=== PATIENT | female | born 1980 | race Caucasian/White ===

== ENCOUNTER 2018-02-20 19:06 | Emergency (ER) | payer MEDICAID ==
[2018-02-20] MEDS ORDERED: HALOPERIDOL LACT 5 MG/ML INJ IM ONE (19:14)
[2018-02-20] MEDS ORDERED: LORazepam 2 MG/ML INJ IM ONE (19:14)
--- NOTE | 2018-02-20 19:20 | EDPHY ---
H & P Source: Patient Exam Limitations: No limitations - Personal History Tetanus Vaccine Date: 2013 - Medical/Surgical History Hx Asthma: No Hx Chronic Respiratory Disease: No Hx Diabetes: No Hx Cardiac Disease: No Hx Renal Disease: No Hx Cirrhosis: No Hx Alcoholism: No Hx HIV/AIDS: No Hx Splenectomy or Spleen Trauma: No Other PMH: Degenerative disk disease, scoliosis, tubal ligation, herniated disk , chronic back pain - Family History Significant Family History: No pertinent family hx - Social History Smoking Status: Current every day smoker Alcohol Use: Sober Drug Use: None Time Seen by Provider: 02/20/18 19:23 HPI/ROS: CHIEF COMPLAINT: Anxiety HISTORY OF PRESENT ILLNESS: Patient is a 37-year-old female who is brought by police and paramedics on an M1 hold. She is being evicted from her apartment and her mom came to help her move back to [place]. She became angry at her mom and told her that she does not want to go and that she has not been evicted yet. She states that her mom has been conspiring with her landlord. She states that police were called. Police state that she began yelling at them and was not making assistance. She endorses a history of anxiety but nothing else. She is prescribed Lexapro but has not been taking it faithfully. She denies drug or alcohol ingestion. She denies suicidality or homicidality. REVIEW OF SYSTEMS: Constitutional: denies: chills, fever, recent illness, recent injury EENTM: denies: blurred vision, double vision, nose congestion Respiratory: denies: cough, shortness of breath Cardiac: denies: chest pain, irregular heart rate, lightheadedness, palpitations Gastrointestinal/Abdominal: denies: abdominal pain, diarrhea, nausea, vomiting, blood streaked stools Genitourinary: denies: dysuria, frequency, hematuria, pain Musculoskeletal: denies: joint pain, muscle pain Skin: denies: lesions, rash, jaundice, bruising Neurological: denies: headache, numbness, paresthesia, tingling, dizziness, weakness Hematologic/Lymphatic: denies: blood clots, easy bleeding, easy bruising Immunologic/allergic: denies: HIV/AIDS, transplant EXAM: GENERAL: Well-appearing, thin and in no acute distress. HEAD: Atraumatic, normocephalic. EYES: Pupils equal round and reactive to light, extraocular movements intact, sclera anicteric, conjunctiva are normal. ENT: TMs normal, nares patent, oropharynx clear without exudates. Moist mucous membranes. NECK: Normal range of motion, supple without lymphadenopathy or JVD. LUNGS: Breath sounds clear to auscultation bilaterally and equal. No wheezes rales or rhonchi. HEART: Regular rate and rhythm without murmurs, rubs or gallops. ABDOMEN: Soft, nontender, normoactive bowel sounds. No guarding, no rebound. No masses appreciated. BACK: No CVA tenderness, no spinal tenderness, step-offs or deformities EXTREMITIES: Normal range of motion, no pitting or edema. No clubbing or cyanosis. NEUROLOGICAL: Cranial nerves II through XII grossly intact. Normal speech, normal gait. 5/5 strength, normal movement in all extremities, normal sensation PSYCH: Angry, yelling SKIN: Warm, dry, normal turgor, no visible rashes or lesions. (Kevin Francis) Constitutional: Initial Vital Signs Temperature (C) 36.1 C 02/20/18 19:23 Heart Rate 120 H 02/20/18 19:23 Respiratory Rate 20 02/20/18 19:23 Blood Pressure 131/112 H 02/20/18 19:23 O2 Sat (%) 95 02/20/18 19:23 O2 Delivery Mode Room Air Allergies/Adverse Reactions: No Known Allergies Allergy (Verified 02/20/18 19:22) Home Medications: Medication Instructions Recorded Lexapro 02/20/18 Adderall 02/21/18 Medical Decision Making ED Course/Re-evaluation: This patient was turned over to me at change of shift. This patient was accepted [address] [place] [address]. Because of this patient's last outbursts which was nonviolent and simply a verbal outbursts that she did not want to go to [address] [place] [address] doctor Andrzej at [address] [place] [address] has declined her acceptance. We will now look for another placement. They want wait until tomorrow to reassess her. I had a long discussion with the patient. She is not suicidal she is not homicidal she is not gravely disabled. She has a job. She has a place to stay. She has relatives in the area. She is making perfect sense to me and she is not acting out at all. Since the psychiatric team cannot seem to perform a timely evaluation and admit the patient I am dropping the 72 hr hold and discharging her for outpatient follow-up. She does not meet criteria for a hold (Mikey Deal) 7:30 a.m.- The patient was able to provide a urine sample though when she got out of bed she became agitated once more yelling profanities. She was given a dose of Zyprexa and this allowed her to home. The case will be signed out to the oncoming provider Dr. Deal pending her psychiatric evaluation. Her urine toxicology was positive for amphetamines as this may delay her evaluation. ( Tess Charles) 10:00 p.m. The patient is calm now and cooperating. She has not yet provided a urine sample. She is otherwise medically cleared and awaiting psychiatric evaluation. Care transferred to Dr. Covarrubias at shift change. (Kevin Francis) Differential Diagnosis: Partial list of the Differential diagnosis considered include but were not limited to; anxiety, anger reaction and although unlikely based on the history and physical exam, I also considered psychosis, suicidality infection, trauma overdose. (Kevin Francis) - Data Points Laboratory Results: Laboratory Results 02/20/18 19:30 02/20/18 19:30 Medications Given: Discontinued Medications Lorazepam (Ativan) 1 mg PO EDNOW ONE Stop: 02/20/18 20:15 Last Admin: 02/20/18 20:19 Dose: 1 mg Lorazepam (Ativan) 1 mg PO EDNOW ONE Stop: 02/21/18 13:57 Last Admin: 02/21/18 13:57 Dose: 1 mg Olanzapine (Zyprexa Zydis) 10 mg PO EDNOW ONE Stop: 02/20/18 20:15 Last Admin: 02/20/18 20:19 Dose: 10 mg Olanzapine (Zyprexa Im Injection) 10 mg IM EDNOW ONE Stop: 02/21/18 05:52 Last Admin: 02/21/18 05:57 Dose: 10 mg Olanzapine (Zyprexa Zydis) 10 mg PO EDNOW ONE Stop: 02/21/18 13:58 Last Admin: 02/21/18 13:58 Dose: 10 mg Departure - Departure Disposition: Home, Routine, Self-Care Clinical Impression: Anxiety Condition: Good Instructions: Anxiety (ED) Referrals: NONE *PRIMARY CARE P,. [Primary Care Provider] - As per Instructions
[2018-02-20 19:45] LABS: PLATELET COUNT 280 10^3/uL (150-400)
[2018-02-20] MEDS ORDERED: OLANZapine DISINTEGR 10 MG TAB ONE (19:45)
[2018-02-20] MEDS ORDERED: LORazepam 1 MG TAB ONE (19:46)
[2018-02-20] MEDS ORDERED: OLANZapine DISINTEGR 10 MG TAB PO ONE (20:14)
[2018-02-20] MEDS ORDERED: LORazepam 1 MG TAB PO ONE (20:14)
[2018-02-21] MEDS ORDERED: OLANZapine 10 MG/2 ML VIAL ONE ×2 (05:48→12:16)
[2018-02-21] MEDS ORDERED: OLANZapine 10 MG/2 ML VIAL IM ONE (05:51)
[2018-02-21 08:21] VITALS: BP 133/60
[2018-02-21] MEDS ORDERED: OLANZapine DISINTEGR 10 MG TAB ONE (13:45)
[2018-02-21] MEDS ORDERED: LORazepam 1 MG TAB ONE (13:45)
[2018-02-21] MEDS ORDERED: LORazepam 1 MG TAB PO ONE (13:56)
[2018-02-21] MEDS ORDERED: OLANZapine DISINTEGR 10 MG TAB PO ONE (13:57)
== END 2018-02-21 14:23 | disposition home or self-care (01) ==
LOC: EDUNIT#
DX: F41.9 Anxiety disorder, unspecified (principal); F17.200 Nicotine dependence, unspecified, uncomplicated
CPT/HCPCS: 80305; G0480